=== PATIENT | male | born 1975 | race African-American/Black ===

== ENCOUNTER 2016-09-26 19:48 | Emergency (ER) | payer OTHER ==
[2016-09-26 19:49] VITALS: BP 129/85; PULSE 85; RESP 16; TEMP 97.6; O2SAT 100
--- NOTE | 2016-09-26 20:44 | PD ---
HPI Chief Complaint: Medical Clearance Time Seen by Provider: 20:41 Travel History International Travel<30 days: No Contact w/Intl Traveler<30days: No Traveled to known affect area: No History of Present Illness HPI 41-year-old black male presents emergency Department requesting treatment for an STD. He states that his significant other was seen last week for an STD. She had cultures performed which were positive. He does not know what they were positive for but she was notified that she had an STD. He comes in for treatment. He denies any symptoms at this time. No dysuria, frequency, discharge, rashes or lesions. PFSH Past Medical History Medical History: Denies Significant Hx Tetanus Vaccination: < 5 Years Past Surgical History Surgical History: No Previous Surgery Social History Alcohol Use: Yes (occassionally) Tobacco Use: Yes Substance Use: Yes (marijuana) Allergies-Medications (Allergen,Severity, Reaction): Coded Allergies: No Known Allergies (Unverified , 09/26/16) Reported Meds & Prescriptions Reported Meds & Active Scripts Active No Active Prescriptions or Reported Medications Review of Systems Except as stated in HPI: all other systems reviewed are Neg Physical Exam Narrative GENERAL: This is a well-nourished, well-developed patient, in no apparent distress. SKIN: No rashes, ecchymoses or lesions. Warm and dry. HEAD: Atraumatic. Normocephalic. EYES: PERRL, EOMI, no discharge or injection. No scleral icterus. EARS: Clear NOSE: Nasal turbinates appear normal. THROAT: Mucosa pink and moist. Airway patent. NECK: Trachea midline. supple, moves head freely. LUNGS: Clear to auscultation. CV: Regular in rhythm. ABDOMEN: Soft nontender. EXT: No clubbing cyanosis or edema. Data Data Last Documented VS Vital Signs Date Time Temp Pulse Resp B/P Pulse Ox O2 Delivery O2 Flow Rate FiO2 09/26/16 19:49 97.6 85 16 129/85 100 MDM Medical Decision Making Medical Screen Exam Complete: Yes Emergency Medical Condition: Yes Medical Record Reviewed: Yes Differential Diagnosis MDM: Moderate Differential diagnoses: Chlamydia, gonorrhea, syphilis, chancroid, hepatitis, HIV, herpes Narrative Course Patient is given Rocephin 250 g IM, Zithromax 1 g by mouth. GC and chlamydia along with UA sent for analysis. This is an STD exposure Diagnosis Primary Impression: STD exposure Patient Instructions: General Instructions Additional Instructions: Rest. Partner notification. Follow-up with the [facility] Department for further STD testing such as HIV, syphilis and hepatitis. No intercourse until all partners treated. Flagyl. Always use a condom. Return to the ER if any problems. Med/Other Pt SpecificInfo: Prescription(s) given Scripts No Active Prescriptions or Reported Meds Disposition: 01 DISCHARGE HOME Condition: Juan Foote Sep 26, 2016 20:44
[2016-09-26] MEDS ORDERED: LIDOCAINE HCL 1% 50 ML VIAL IM ONE (20:45)
[2016-09-26] MEDS ORDERED: AZITHROMYCIN PWD FOR SUSP 1 GM PACKET PO ONE (20:45)
[2016-09-26] MEDS ORDERED: cefTRIAXone 250 MG VIAL IM ONE (20:45)
[2016-09-26] MEDS ORDERED: METR-1 PO (20:46)
== END 2016-09-26 21:23 | disposition home or self-care (01) ==
LOC: NEPD 19:48
DX: Z20.2 Contact with and (suspected) exposure to infections with a predominantly sexual mode of transmission (principal); Z72.0 Tobacco use; F12.90 Cannabis use, unspecified, uncomplicated
CPT/HCPCS: 96372; 99283; J0696

== ENCOUNTER 2016-10-27 04:54 | Emergency (ER) | payer OTHER ==
[~2016-10-27] VITALS: Ht 165.1 cm; Wt 76.0 kg
[~2016-10-27 04:54] MED LIST: METR-1 PO
[2016-10-27 04:56] VITALS: BP 137/80; PULSE 76; RESP 16; TEMP 98; O2SAT 99
[2016-10-27] MEDS ORDERED: DEXT1TAB18 PO (04:58)
[2016-10-27] MEDS ORDERED: ALBU6.7H INH (05:05)
[2016-10-27] MEDS ORDERED: AMOX500C PO (05:05)
[2016-10-27] MEDS ORDERED: PRED-503 PO (05:05)
--- NOTE | 2016-10-27 05:09 | PD ---
HPI Chief Complaint: Cold / Flu Symptoms Time Seen by Provider: 05:06 Travel History International Travel<30 days: No Contact w/Intl Traveler<30days: No Traveled to known affect area: No History of Present Illness HPI 41-year-old black male presents emergency Department with a four-day history of sore throat, laryngitis, coughing congestion. He states that he has some subjective fever and chills initially but that resolved. He's had some ear congestion, runny nose, pleuritic chest wall pain and general malaise. He denies any nausea vomiting. No bowel pain or diarrhea. No urinary symptoms or rashes. Symptoms are moderate. Worse with talking and coughing. PFSH Past Medical History Medical History: Denies Significant Hx Immunizations Current: Yes Tetanus Vaccination: Unknown Influenza Vaccination: No Past Surgical History Surgical History: No Previous Surgery Social History Alcohol Use: Yes (occassionally) Tobacco Use: Yes Substance Use: Yes (marijuana) Allergies-Medications (Allergen,Severity, Reaction): Coded Allergies: No Known Allergies (Unverified , 10/27/16) Reported Meds & Prescriptions Reported Meds & Active Scripts Active Reported Mucinex DM Maximum Strength (Dextromethorphan-Guaifenesin ER 12 HR) 60-1,200 Mg Tab 1 Tab PO BID PRN Review of Systems Except as stated in HPI: all other systems reviewed are Neg Physical Exam Narrative GENERAL: Well-developed, well-nourished in no acute distress. Nontoxic appearing. Hoarse voice but not hot potato. HEAD: Normocephalic, atraumatic. EYES: Pupils equal round and reactive. Extraocular motions intact. No scleral icterus. No injection or drainage. ENT: TMs clear without erythema. The external auditory canals clear. Nose: clear . Posterior pharynx is mildly erythematous and moist. No tonsillar edema or exudate. Uvula midline. Airway patent. NECK: Trachea midline.Supple, nontender, moves head freely. No central bony tenderness or spasm. CARDIOVASCULAR: Regular rate and rhythm without murmurs, gallops, or rubs. RESPIRATORY: Clear to auscultation. Breath sounds equal bilaterally. No wheezes , rales, or rhonchi. GASTROINTESTINAL: Abdomen soft, non-tender, nondistended. No hepato-splenomegaly , or palpable masses. No guarding. EXTREMITIES: No clubbing, cyanosis, or edema. No joint tenderness, effusion, or edema noted. BACK: Nontender without deformity or crepitance. No flank tenderness. Data Data Last Documented VS Vital Signs Date Time Temp Pulse Resp B/P Pulse Ox O2 Delivery O2 Flow Rate FiO2 10/27/16 04:56 98.0 76 16 137/80 99 MDM Medical Decision Making Medical Screen Exam Complete: Yes Emergency Medical Condition: Yes Medical Record Reviewed: Yes Differential Diagnosis MDM: High Differential diagnoses: Strep throat, viral pharyngitis, mono, laryngitis, URI Narrative Course This is laryngitis, URI Diagnosis Primary Impression: Acute laryngitis Additional Impression: Acute URI Patient Instructions: General Instructions Departure Forms: Tests/Procedures, Work Release Special Instructions: No work 2-3 days. Additional Instructions: Rest. Force fluids. Saltwater gargles. Tylenol and Advil. Chloraseptic [place] Cepastat lozenge. Prednisone, albuterol, Amoxicillin. Follow-up with a primary care doctor in one week. Return to the ER if any problems. Med/Other Pt SpecificInfo: Prescription(s) given Scripts Albuterol 6.7 GM Inh (Proventil Hfa 6.7 GM Inh)90 Mcg/Act Aer2 Puff INH Q6H PRN (SHORTNESS OF BREATH) #1 INHALER Prov:Joycelyn Chavarria MD 10/27/16 Prednisone (Deltasone)20 Mg Tab20 Mg PO BID #10 TAB Prov:Joycelyn Chavarria MD 10/27/16 Amoxicillin 500 Mg Fls171 Mg PO TID #30 CAP Prov:Joycelyn Chavarria MD 10/27/16 Disposition: 01 DISCHARGE HOME Condition: Stable Juan Griffin October 27, 2016 05:09
== END 2016-10-27 05:21 | disposition home or self-care (01) ==
LOC: NEPD 04:54
DX: J04.0 Acute laryngitis (principal); J06.9 Acute upper respiratory infection, unspecified
CPT/HCPCS: 99284

== ENCOUNTER 2016-11-18 07:28 | Emergency (ER) | payer OTHER ==
[~2016-11-18] VITALS: Ht 170.2 cm; Wt 72.5 kg
[~2016-11-18 07:28] MED LIST changes: +ALBU6.7H INH; +AMOX500C PO; +DEXT1TAB18 PO; -METR-1 PO; +PRED-503 PO
[2016-11-18 07:30] VITALS: BP 131/66; PULSE 70; RESP 13; TEMP 97.8; O2SAT 99
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
[2016-11-18] MEDS ORDERED: ALBUAER3 INH (08:35)
[2016-11-18] MEDS ORDERED: PRED20 PO (08:35)
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
== END 2016-11-18 09:05 | disposition home or self-care (01) ==
LOC: NEPC 07:28
DX: T59.891A Toxic effect of other specified gases, fumes and vapors, accidental (unintentional), initial encounter (principal); J68.0 Bronchitis and pneumonitis due to chemicals, gases, fumes and vapors; R51 Headache; Z72.0 Tobacco use; X08.8XXA Exposure to other specified smoke, fire and flames, initial encounter; Y99.0 Civilian activity done for income or pay
CPT/HCPCS: 71020; 99284